=== PATIENT | male | born 1975 | race African-American/Black ===

== ENCOUNTER 2020-12-20 00:14 | Emergency (ER) | payer OTHER ==
[~2020-12-20] VITALS: Ht 175.3 cm; Wt 86.2 kg
[~2020-12-20 00:14] MED LIST: QUET200T PO; TRAM50TA2 PO
--- NOTE | 2020-12-20 00:20 | NUR ---
PATIENT CAME TO THE ER BED 13 BIBSELF C/O SUICIDAL IDEATIONPLANS TO OD ON DRUGS. PATIENT IS ALERT AND ORIENTED x4. AMBULATORY WITH A STEADY GAIT. PATIENT IS BREATHING EVENLY AND UNLABORED ON ROOM AIR. CONNECTED TO THE MONITOR. PERSONAL BELONGINGS ARE REMOVED AND PLACED INTO A LOCKED LOCKER. PATIENT IS CURRENTLY IN A GOWN. SITTER IS AT BEDSIDE. WILL CONTINUE TO MONITOR THE PATIENT.
--- NOTE | 2020-12-20 00:20 | NUR ---
CALLED TO TRIAGE, NO ANSWER AND NOT IN THE WAITING ROOM
--- NOTE | 2020-12-20 01:05 | NUR ---
COVID SWAB COLLECTED AND SENT TO LAB
[2020-12-20 01:08] LABS: BILIRUBIN,URINE Negative (NEGATIVE); COLOR,URINE YELLOW (YELLOW); LEUKOCYTE ESTERASE ,URINE Negative (NEGATIVE); NITRITE, URINE Negative (NEGATIVE); PROTEIN,URINE Negative (NEGATIVE); UGLUCOSE Negative (NEGATIVE)
[2020-12-20 01:19] LABS: BACTERIA,URINE Few /HPF (None Seen); MUCUS,URINE Few /LPF (None Seen); RBC,URINE 0-2 /HPF (0-2); SQUAMOUS EPITHELIAL CELL,UR Few /HPF (None Seen)
[2020-12-20 01:29] LABS: BASOPHILS # (AUTO) 0.1 K/uL (0.0-0.2); BASOPHILS % (AUTO) 1.1 % (0.0-2.0); EOSINOPHILS % (AUTO) 3.2 % (0.0-6.0); HEMATOCRIT 38 % (39-51); HEMOGLOBIN 12.2 g/dL (13.5-17.5); LYMPHOCYTES # (AUTO) 1.6 K/uL (0.8-4.8); LYMPHOCYTES % (AUTO) 29.2 % (20.0-44.0); MEAN CORPUSCULAR HGB CONC 32 g/dl (31.0-36.0); MEAN CORPUSCULAR VOLUME 74 fL (80-96); MONOCYTES # (AUTO) 0.9 K/uL (0.1-1.30); MONOCYTES % (AUTO) 16.1 % (2.0-12.0); NEUTROPHILS # (AUTO) 2.7 K/uL (1.8-8.9); NEUTROPHILS % (AUTO) 50.4 % (43.0-81.0); PLATELET COUNT (AUTO) 302 K/uL (150-450); RED BLOOD CELL COUNT(AUTO) 5.18 MIL/uL (4.5-6.0); WHITE BLOOD COUNT (AUTO) 5.3 K/uL (4.3-11.0)
[2020-12-20 01:47] LABS: CARBON DIOXIDE 31 mmol/L (21-32); CHLORIDE 104 mmol/L (98-107); GLUCOSE 94 mg/dL (74-106); SODIUM SERUM 142 mmol/L (136-145); UREA NITROGEN, BLOOD 28 mg/dL (7-18)
[2020-12-20 01:51] LABS: ALANINE AMINOTRANSFERASE 49 U/L (12-78); ALBUMIN 3.6 g/dL (3.4-5.0); ALCOHOL, BLOOD < 3 mg/dL (0-0); ALKALINE PHOSPHATASE 92 U/L (46-116); ASPARTATE AMINOTRANSFERASE 50 U/L (15-37); BILIRUBIN,DIRECT 0.1 mg/dL (0.0-0.2); BILIRUBIN,TOTAL 0.4 mg/dL (0.2-1.0); TOTAL PROTEIN, SERUM 7.5 g/dL (6.4-8.2)
[2020-12-20 01:52] LABS: ACETAMINOPHEN 0 ug/ml (10-30)
--- NOTE | 2020-12-20 02:06 | NUR ---
CLINICALS AND FACESHEET FAXED TO [facility].
[2020-12-20 02:30] LABS: EOSINOPHILS % (MANUAL) 5 % (0-4); LYMPHOCYTES % (MANUAL) 29 % (16-48); MONOCYTES % (MANUAL) 15 % (0-11.0); NEUTROPHILS % (MANUAL) 51 (42-76)
--- NOTE | 2020-12-20 03:15 | NUR ---
Patient is resting comfortably in bed with eyes closed. Easily aroused. VSS
--- NOTE | 2020-12-20 04:27 | NUR ---
pt asleep, connected to monitor. VSS
--- NOTE | 2020-12-20 05:24 | NUR ---
PER ART, OF [facility], "PLEASE SEND PATIENT AT NOON, THAT IS WHEN THEIR BED WILL BE AVAILABLE."
--- NOTE | 2020-12-20 05:24 | NUR ---
Pt accepted to [facility] Accepting Dr Jane. Unit [address]. Call report [phone]
--- NOTE | 2020-12-20 06:45 | NUR ---
[facility] SETUP FOR ETA 1130.
--- NOTE | 2020-12-20 07:40 | NUR ---
PT RECEIVED REPORT FROM DENISSE SCHWAB FOR [facility]. PT ASLEEP ON BED EASILY AROUSABLE, NOT IN RESPIRATORY DISTRESS, V/S STABLE, KEPT RESTED AND COMFORTABLE. AWAITING TRANSFER TO [facility].
--- NOTE | 2020-12-20 12:08 | NUR ---
REPORT GIVEN TO EMS FOR PT TRANSFER TO [facility]
[2020-12-20 12:58] VITALS: BP 128/76
== END 2020-12-20 12:59 ==
LOC: ER 00:18
DX: R45.851 Suicidal ideations (principal); F19.10 Other psychoactive substance abuse, uncomplicated; F20.9 Schizophrenia, unspecified; F31.9 Bipolar disorder, unspecified; G62.9 Polyneuropathy, unspecified; Z59.0 Homelessness; Z20.822 Contact with and (suspected) exposure to COVID-19
CPT/HCPCS: 36415; 80048; 80076; 80143; 80307; 80320; 81001; 85007; 85025; 87426; 99285; C9803; G0480

== ENCOUNTER 2021-01-03 17:48 | Emergency (ER) | payer OTHER ==
[~2021-01-03] VITALS: Ht 170.2 cm; Wt 83.9 kg
[2021-01-03 18:00] VITALS: BP 121/84
--- NOTE | 2021-01-03 18:38 | NUR ---
PATIENT ELOPED BEFORE BEING SEEN BY ED PROVIDED.
== END 2021-01-03 18:40 | disposition left against medical advice (07) ==
LOC: ER 17:53
DX: Z53.21 Procedure and treatment not carried out due to patient leaving prior to being seen by health care provider (principal); R44.0 Auditory hallucinations; F32.9 Major depressive disorder, single episode, unspecified; G62.9 Polyneuropathy, unspecified

== ENCOUNTER 2021-01-23 13:49 | Emergency (ER) | payer OTHER ==
[~2021-01-23] VITALS: Ht 170.2 cm; Wt 74.8 kg
--- NOTE | 2021-01-23 13:55 | NUR ---
CALLED TO TRIAGE,NO ANSWER,WENT TO THE REST ROOM PER ADMITTING
--- NOTE | 2021-01-23 14:05 | NUR ---
Compa billy in [facility] - 01/27/21 at 1914 by ENIO PT LEFT W/OUT BEING TRIAGED.
[2021-01-23 14:18] VITALS: BP 120/73
--- NOTE | 2021-01-23 14:18 | NUR ---
PT SELF PRESENTS TO ED. AMBULATORY W/ STEADY GAIT C/O DEPRESSION W. SI W/ PLAN TO JUMP OFF A BUILDING. DENIES HI. COOPERATIVE TO STAFF AND REQUESTING TO GO VOLUNTARY TO [facility]. STABLE VITALS. AWAITING MD NICHOLSON.
--- NOTE | 2021-01-23 14:20 | NUR ---
DR WADDELL AT BEDSIDE FOR EVAL.
--- NOTE | 2021-01-23 14:38 | NUR ---
BOOKKEEPING TEACHER AT BEDSIDE FOR BLOOD DRAW.
[2021-01-23 14:43] LABS: BASOPHILS # (AUTO) 0.1 K/uL (0.0-0.2); BASOPHILS % (AUTO) 1.2 % (0.0-2.0); EOSINOPHILS % (AUTO) 2.1 % (0.0-6.0); HEMATOCRIT 36 % (39-51); HEMOGLOBIN 11.3 g/dL (13.5-17.5); LYMPHOCYTES # (AUTO) 1.1 K/uL (0.8-4.8); LYMPHOCYTES % (AUTO) 18.7 % (20.0-44.0); MEAN CORPUSCULAR HGB CONC 32 g/dl (31.0-36.0); MEAN CORPUSCULAR VOLUME 75 fL (80-96); MONOCYTES # (AUTO) 0.6 K/uL (0.1-1.30); MONOCYTES % (AUTO) 10.9 % (2.0-12.0); NEUTROPHILS # (AUTO) 3.9 K/uL (1.8-8.9); NEUTROPHILS % (AUTO) 67.1 % (43.0-81.0); PLATELET COUNT (AUTO) 321 K/uL (150-450); RED BLOOD CELL COUNT(AUTO) 4.76 MIL/uL (4.5-6.0); WHITE BLOOD COUNT (AUTO) 5.7 K/uL (4.3-11.0)
[2021-01-23 14:45] LABS: BILIRUBIN,URINE Negative (NEGATIVE); COLOR,URINE YELLOW (YELLOW); LEUKOCYTE ESTERASE ,URINE Negative (NEGATIVE); NITRITE, URINE Negative (NEGATIVE); PH,URINE 5.5 (5.0-8.0); PROTEIN,URINE Negative (NEGATIVE); UGLUCOSE Negative (NEGATIVE)
[2021-01-23 14:58] LABS: CALCIUM, SERUM 8.4 mg/dL (8.5-10.1); CARBON DIOXIDE 25 mmol/L (21-32); CHLORIDE 107 mmol/L (98-107); CREATININE 1.1 mg/dL (0.6-1.3); GLUCOSE 112 mg/dL (74-106); POTASSIUM 3.4 mmol/L (3.5-5.1); SODIUM SERUM 140 mmol/L (136-145); UREA NITROGEN, BLOOD 25 mg/dL (7-18)
[2021-01-23 15:02] LABS: ALANINE AMINOTRANSFERASE 51 U/L (12-78); ALBUMIN 3.8 g/dL (3.4-5.0); ALCOHOL, BLOOD < 3 mg/dL (0-0); ALKALINE PHOSPHATASE 96 U/L (46-116); ASPARTATE AMINOTRANSFERASE 47 U/L (15-37); BILIRUBIN,DIRECT 0.2 mg/dL (0.0-0.2); BILIRUBIN,TOTAL 0.6 mg/dL (0.2-1.0); TOTAL PROTEIN, SERUM 7.5 g/dL (6.4-8.2)
[2021-01-23 15:03] LABS: ACETAMINOPHEN 0 ug/ml (10-30)
[2021-01-23 15:14] LABS: BACTERIA,URINE Few /HPF (None Seen); SQUAMOUS EPITHELIAL CELL,UR Few /HPF (None Seen); WBC,URINE 0-2 /HPF (0-3)
--- NOTE | 2021-01-23 17:35 | NUR ---
PT NO LONGER IN ROOM. ELOPED.
== END 2021-01-23 14:05 | disposition left against medical advice (07) ==
LOC: ER 13:59
DX: R45.851 Suicidal ideations (principal); F31.9 Bipolar disorder, unspecified; F20.9 Schizophrenia, unspecified; G62.9 Polyneuropathy, unspecified; Z20.822 Contact with and (suspected) exposure to COVID-19; Z53.29 Procedure and treatment not carried out because of patient's decision for other reasons
CPT/HCPCS: 36415; 80048; 80076; 80143; 80307; 80320; 81001; 85025; 87426; 99285; C9803; G0480

== ENCOUNTER 2021-01-26 13:36 | Emergency (ER) | payer OTHER ==
[~2021-01-26] VITALS: Ht 170.2 cm; Wt 75.3 kg
[2021-01-26 15:01] LABS: BASOPHILS % (AUTO) 0.9 % (0.0-2.0); EOSINOPHILS % (AUTO) 2.4 % (0.0-6.0); HEMATOCRIT 38 % (39-51); HEMOGLOBIN 11.7 g/dL (13.5-17.5); LYMPHOCYTES # (AUTO) 0.8 K/uL (0.8-4.8); LYMPHOCYTES % (AUTO) 19.3 % (20.0-44.0); MEAN CORPUSCULAR HGB CONC 31 g/dl (31.0-36.0); MEAN CORPUSCULAR VOLUME 76 fL (80-96); MONOCYTES # (AUTO) 0.4 K/uL (0.1-1.30); MONOCYTES % (AUTO) 9.2 % (2.0-12.0); NEUTROPHILS % (AUTO) 68.2 % (43.0-81.0); PLATELET COUNT (AUTO) 303 K/uL (150-450); RED BLOOD CELL COUNT(AUTO) 4.93 MIL/uL (4.5-6.0); WHITE BLOOD COUNT (AUTO) 4.4 K/uL (4.3-11.0)
[2021-01-26 15:14] LABS: ACETAMINOPHEN < 10 ug/ml (10-30); ALANINE AMINOTRANSFERASE 45 U/L (12-78); ALBUMIN 3.2 g/dL (3.4-5.0); ALCOHOL, BLOOD < 3 mg/dL (0-0); ALKALINE PHOSPHATASE 96 U/L (46-116); ASPARTATE AMINOTRANSFERASE 29 U/L (15-37); BILIRUBIN,DIRECT 0.1 mg/dL (0.0-0.2); BILIRUBIN,TOTAL 0.2 mg/dL (0.2-1.0); CALCIUM, SERUM 8.5 mg/dL (8.5-10.1); CARBON DIOXIDE 26 mmol/L (21-32); CHLORIDE 108 mmol/L (98-107); CREATININE 1.1 mg/dL (0.6-1.3); GLUCOSE 133 mg/dL (74-106); POTASSIUM 4.4 mmol/L (3.5-5.1); SODIUM SERUM 141 mmol/L (136-145); TOTAL PROTEIN, SERUM 6.8 g/dL (6.4-8.2); UREA NITROGEN, BLOOD 18 mg/dL (7-18)
--- NOTE | 2021-01-26 15:26 | NUR ---
Patient came in to the er c/o +SI " i want to OD on pills", want's volunatry admission to psych. On room air, breathing evenly and unlabored. Kept comfortable, will continue to monitor accordingly.
--- NOTE | 2021-01-26 16:00 | NUR ---
urine collected and sent to lab.
[2021-01-26 16:39] LABS: BILIRUBIN,URINE NEGATIVE (NEGATIVE); COLOR,URINE YELLOW (YELLOW); LEUKOCYTE ESTERASE ,URINE NEGATIVE (NEGATIVE); NITRITE, URINE NEGATIVE (NEGATIVE); PROTEIN,URINE NEGATIVE (NEGATIVE); UGLUCOSE NEGATIVE (NEGATIVE); UROBILINOGEN,URINE 0.2 EU/dL (0.2)
--- NOTE | 2021-01-27 00:09 | NUR ---
FAXED FACE SHEET AND CLINICALS TO [facility]
--- NOTE | 2021-01-27 02:00 | NUR ---
pt sitting quietly watching tv. vss
--- NOTE | 2021-01-27 03:19 | NUR ---
Patient is resting comfortably in bed with eyes closed. Easily aroused. VSS
--- NOTE | 2021-01-27 04:38 | NUR ---
pt sleeping, attached to monitor and pox. vss
--- NOTE | 2021-01-27 05:45 | NUR ---
Patient is resting comfortably in bed with eyes closed. Easily aroused. VSS
[2021-01-27 07:30] VITALS: BP 130/74
--- NOTE | 2021-01-27 09:09 | NUR ---
spoke to [facility] intake patient is accepted at [facility] [phone] Miller
--- NOTE | 2021-01-27 09:59 | NUR ---
[facility] CALLED WITH ETA OF 60 MINS.
--- NOTE | 2021-01-27 10:40 | NUR ---
report given to charge nurse kenan at [facility].
== END 2021-01-27 10:43 ==
LOC: ER 13:38
DX: R45.851 Suicidal ideations (principal); F19.10 Other psychoactive substance abuse, uncomplicated; Z59.00 Homelessness unspecified; F31.9 Bipolar disorder, unspecified; F20.9 Schizophrenia, unspecified; G62.9 Polyneuropathy, unspecified; Z20.822 Contact with and (suspected) exposure to COVID-19; Z82.49 Family history of ischemic heart disease and other diseases of the circulatory system
CPT/HCPCS: 36415; 80048; 80076; 80143; 80307; 80320; 81003; 85025; 87426; 99285; C9803; G0480

== ENCOUNTER 2021-02-25 10:08 | Emergency (ER) | payer OTHER ==
--- NOTE | 2021-02-25 10:20 | NUR ---
CALLED TO TRIAGE,NO ANSWER
--- NOTE | 2021-02-25 10:50 | NUR ---
CALLED TO [facility] NO ANSWER.
--- NOTE | 2021-02-25 10:51 | NUR ---
Patient eloped from facility. ER MD notified.
== END 2021-02-25 10:51 | disposition left against medical advice (07) ==
LOC: ER 10:13
DX: Z53.21 Procedure and treatment not carried out due to patient leaving prior to being seen by health care provider (principal)

== ENCOUNTER 2021-02-25 16:57 | Emergency (ER) | payer OTHER ==
[~2021-02-25] VITALS: Ht 170.2 cm; Wt 68.0 kg
[2021-02-25 18:06] LABS: BASOPHILS # (AUTO) 0.1 K/uL (0.0-0.2); BASOPHILS % (AUTO) 1.4 % (0.0-2.0); HEMATOCRIT 34 % (39-51); HEMOGLOBIN 10.8 g/dL (13.5-17.5); LYMPHOCYTES # (AUTO) 1.3 K/uL (0.8-4.8); LYMPHOCYTES % (AUTO) 26.8 % (20.0-44.0); MEAN CORPUSCULAR HGB CONC 32 g/dl (31.0-36.0); MEAN CORPUSCULAR VOLUME 76 fL (80-96); MONOCYTES # (AUTO) 0.5 K/uL (0.1-1.30); MONOCYTES % (AUTO) 11.3 % (2.0-12.0); NEUTROPHILS # (AUTO) 2.8 K/uL (1.8-8.9); NEUTROPHILS % (AUTO) 58.5 % (43.0-81.0); PLATELET COUNT (AUTO) 346 K/uL (150-450); RED BLOOD CELL COUNT(AUTO) 4.45 MIL/uL (4.5-6.0); WHITE BLOOD COUNT (AUTO) 4.8 K/uL (4.3-11.0)
[2021-02-25 18:21] LABS: CALCIUM, SERUM 8.2 mg/dL (8.5-10.1); CARBON DIOXIDE 26 mmol/L (21-32); CHLORIDE 110 mmol/L (98-107); CREATININE 0.9 mg/dL (0.6-1.3); GLUCOSE 111 mg/dL (74-106); SODIUM SERUM 142 mmol/L (136-145); UREA NITROGEN, BLOOD 19 mg/dL (7-18)
[2021-02-25 18:26] LABS: ALANINE AMINOTRANSFERASE 52 U/L (12-78); ALKALINE PHOSPHATASE 127 U/L (46-116); ASPARTATE AMINOTRANSFERASE 22 U/L (15-37); BILIRUBIN,DIRECT 0.1 mg/dL (0.0-0.2); BILIRUBIN,TOTAL 0.1 mg/dL (0.2-1.0); TOTAL PROTEIN, SERUM 6.8 g/dL (6.4-8.2)
[2021-02-25 18:27] LABS: ACETAMINOPHEN < 2 ug/ml (10-30); ALCOHOL, BLOOD < 3 mg/dL (0-0)
--- NOTE | 2021-02-25 19:34 | NUR ---
REFUSED TO PROVIDE URINE SAMPLE. COVID SWAB OBATAINED
[2021-02-25 21:10] LABS: BILIRUBIN,URINE SMALL (NEGATIVE); COLOR,URINE YELLOW (YELLOW); LEUKOCYTE ESTERASE ,URINE NEGATIVE (NEGATIVE); NITRITE, URINE NEGATIVE (NEGATIVE); PROTEIN,URINE NEGATIVE (NEGATIVE); UGLUCOSE NEGATIVE (NEGATIVE); UROBILINOGEN,URINE 0.2 EU/dL (0.2)
--- NOTE | 2021-02-25 23:12 | NUR ---
FACE SHEET AND CLINICALS FAXED TO [facility]
--- NOTE | 2021-02-26 00:57 | NUR ---
PER ART, PT NOT ACCEPTED AT [facility], ONLY FOR [facility] AT THIS TIME.
--- NOTE | 2021-02-26 07:58 | NUR ---
PT ACCEPTED TO [facility] UNDER DR. LOPEZ CALL [phone] AFTER 1100.
--- NOTE | 2021-02-26 08:01 | NUR ---
CALLED [facility] ASKED FOR 1130 ETA SPOKE WITH BLADIMIR.
--- NOTE | 2021-02-26 08:05 | NUR ---
CALL FROM[facility] OKAYED TO SEND PATIENT
--- NOTE | 2021-02-26 09:00 | NUR ---
REPORT GIVEN TO RENETTA FROM [facility]
--- NOTE | 2021-02-26 11:27 | NUR ---
REPORT GIVEN TO AMBULANCE STAFF
--- NOTE | 2021-02-26 11:37 | NUR ---
THE PATIENT IS DISCHARGED TO [facility] IN STABLE CONDITION VIA ARRANGED TRANSPO.
[2021-02-26 11:38] VITALS: BP 128/87
== END 2021-02-26 11:39 ==
LOC: ER 17:23
DX: F20.9 Schizophrenia, unspecified (principal); F31.9 Bipolar disorder, unspecified; M79.641 Pain in right hand; G62.9 Polyneuropathy, unspecified; Z79.899 Other long term (current) drug therapy; Z59.00 Homelessness unspecified; Z91.81 History of falling; R82.5 Elevated urine levels of drugs, medicaments and biological substances; Z20.822 Contact with and (suspected) exposure to COVID-19
CPT/HCPCS: 36415; 73130; 80048; 80076; 80143; 80307; 80320; 81003; 85025; 87426; 99285; C9803; G0480